=== PATIENT | male | born 1985 | race Caucasian/White ===

== ENCOUNTER → 2023-04-12 | Outpatient (CLI) | payer MEDICAID, SELFPAY ==
[2023-04-12 17:33] LABS: Absolute Lymphocyte Count 2.14 X10^3/uL (0.83-4.51); Absolute Neutrophil Count 7.1 X10^3/uL (2.0-7.7); Basophil# 0.06 X10^3/uL; Basophil% 0.6 % (0-1); Eosinophil# 0.16 X10^3/uL; Eosinophils% 1.5 % (0-5); Hematocrit 45.3 % (40-54); Hemoglobin 15.2 g/dL (13.0-16.5); Lymphocyte # 2.14 X10^3/ul (0.83-4.51); Lymphocyte % 20.4 % (19-41); Mean Corp Hgb Conc 33.6 g/dL (32-36); Mean Corpuscular Hgb 30.1 pg (27.0-32.0); Mean Corpuscular Volume 89.7 fL (80-94); Mean Platelet Vol. 10.4 fl (6.2-12.0); Monocyte# 0.97 X10^3/uL; Monocyte% 9.3 % (0-10); NRBC Flagged by Analyzer 0 % (0-5); Neutrophil # 7.06 X10^3/uL (2.7-7.7); Neutrophil % 67.3 % (47-70); Platelet Count 356 K/mm3 (150-450); RBC Distribution Width CV 12.2 % (11.6-14.6); RBC Distribution Width SD 39.2 fl (35.1-43.9); Red Blood Count 5.05 M/mm3 (4.6-6.2); White Blood Count 10.5 K/mm3 (4.4-11.0)
[2023-04-12 17:51] LABS: Vitamin D,25 Hydroxy 38.2 ng/mL
[2023-04-12 18:10] LABS: AST(SGOT) 15 U/L (15-37); Alanine Aminotransfer ALT/SGPT 30 U/L (16-61); Albumin, Serum 4.1 g/dL (3.2-5.0); Alkaline Phosphatase 76 U/L (45-117); Anion Gap 6 (5-15); BUN 20 mg/dL (7-18); BUN/Creat Ratio 17.9 RATIO (10-20); Calcium,Total 9.6 mg/dL (8.5-10.1); Chloride 105 mmol/L (98-107); Cholesterol 183 mg/dL (200); Creatinine, Serum 1.12 mg/dL (0.70-1.30); EST Glomerular Filtration Rate 79 mL/min (>60); Est Glom Filt Rate - Afr Amer 96 mL/min (>60); Globulin 4.2 g/dL (2.2-4.2); Glucose 91 mg/dL (74-106); High Density Lipoprotein 38 mg/dL; Potassium 3.9 mmol/L (3.5-5.1); Protein, Total 8.3 g/dL (6.4-8.2); Sodium Level 138 mmol/L (136-145); T4 Free Direct 0.93 ng/dL (0.76-1.46); Thyroid Stim Hormone (TSH) 2.11 uIU/mL (0.358-3.74); Triglycerides 411 mg/dL
== END | disposition home or self-care (01) ==
LOC: MFPLAB 14:53
PROVIDERS: PCP Family Medicine; Visit Provider Family Medicine
DX: Z13.21 Encounter for screening for nutritional disorder (principal); Z13.1 Encounter for screening for diabetes mellitus; E66.9 Obesity, unspecified; L73.2 Hidradenitis suppurativa; F90.9 Attention-deficit hyperactivity disorder, unspecified type
CPT/HCPCS: 36415; 80053; 80061; 82306; 84439; 84443; 85025

== ENCOUNTER → 2023-06-08 | Outpatient (CLI) | payer MEDICAID, SELFPAY ==
--- NOTE | 2023-06-08 14:28 | RAD_ITS ---
HISTORY: BACK PAIN. TECHNIQUE: XR Spine Lumbar Min 4 Views. COMPARISON: None. FINDINGS: VERTEBRAE: Vertebral body heights preserved. Posterior elements appear intact. ALIGNMENT: No significant anterior or posterior subluxation. INTERVERTEBRAL DISCS: Disc spaces maintained. SOFT TISSUES: Moderate stool in the colon. RAD/L/S Spine Min 4 Views IMPRESSION: No acute fracture or dislocation identified in the lumbar spine. Electronically Signed: Daija Salter MD at 15:01 EST ,
--- OUTSIDE RECORDS SUMMARY | 2023-06-08 14:38 | XMS RPT_ITS | CCD ---
Author Name Unknown Address [id number] [place] [address] Organization [facility] Care Team Providers Care Process Trainer Name Role Phone DUKE REYES Primary Care Unavailable MARIE BEST Attending Unavailable MARIE BEST P Referring Unavailable REFERRED, SELF Referring Unavailable RENA, DUKE Primary Care Unavailable NASIR, MARIE P Attending Unavailable RENA, DUKE Primary Care Unavailable MARIE BEST P Attending Unavailable REFERRED, SELF Referring Unavailable DUKE REYES Primary Care Unavailable NASIR, MARIE P Attending Unavailable REFERRED, SELF Referring Unavailable DUKE REYES Primary Care Unavailable DUKE REYES Referring Unavailable NASIR, MARIE P Attending Unavailable RENA, DUKE Primary Care Unavailable NASIR, MARIE P Attending Unavailable REFERRED, SELF Referring Unavailable Duke Reyes MD Primary Care Provider WILBERT ESCOBAR MD Primary Care Physician KAROL FERGUSON Attending DUKE Quintero MD Primary Care Unavaila ble KAROL FERGUSON Attending WILBERT Smallwood MD Primary Care Unavailable KAROL FERGUSON Attending WILBERT Smallwood MD Primary Care Unavailable Allergies Allergy Classification Reported Allergen(s) Allergy Type Date of Onset Reaction(s) Facility (3 sources) Codeine; Translations: [CODEINE] Drug Allergy 1 Nausea (finding) [facility] Medications Current Medications Medication Drug Class(es) Dates Sig (Normalized) Sig (Original) clindamycin 0.01 mg/mg topical gel (1 source) Lincosamide Antibacterial Start: 09-21-2022 clindamycin (Clindagel) 1 % gel APPLY TOPICALLY TO AREAS OF INFLAMMATION ONCE DAILY 60 g 5 09/21/2022 Active Completed/Discontinued Medications Medication Drug Class(es) Dates Sig (Normalized) Sig (Original) 24 hr venlafaxine 150 mg extended release oral capsule (2 sources) Serotonin and Norepinephrine Reuptake Inhibitor Start: 12-13-2018 End: 03-13-2019 venlafaxine 150 mg oral capsule, extended release Dose : 150 mg = 1 cap(s), Oral, qDay, TAKE 1 CAPSULE BY MOUTH ONCE DAILY, # 30 cap(s), 2 Refill(s) Start Date: 12/13/18 Stop Date: 03/13/19 Status: Ordered Problems Active Problems Problem Classification Problem Date Documented Date Episodic/Chronic Anxiety disorders (2 sources) Panic disorder 12-13-2018 Chronic Mood disorders (3 sources) Mood disorder; Translations: [Unspecified mood [affective] disorder] Onset: 07-21-2020 03-19-2022 Chronic Other nervous system disorders (1 source) Disturbance of attention; Translations: [Attention and concentration deficit] Onset: 07-21-2020 03-19-2022 Chronic Residual codes; unclassified (2 sources) Insomnia 12-13-2018 Episodic Substance-related disorders (1 source) Psychoactive substance abuse; Translations: [Other psychoactive substance abuse, uncomplicated] Chronic Thyroid disorders (1 source) Non-toxic multinodular goiter; Translations: [Nontoxic multinodular goiter] Onset: 07-21-2020 03-19-2022 Chronic Past or Other Problems Problem Classification Problem Date Documented Da te Episodic/Chronic Blindness and vision defects (1 source) Blurring of visual image; Translations: [Other visual disturbances] Onset: 07-21-2020 03-19-2022 Episodic Other circulatory disease (1 source) Elevated blood-pressure reading without diagnosis of hypertension; Translations: [Elevated blood-pressure reading, without diagnosis of hypertension] Onset: 07-21-2020 03-19-2022 Episodic Other skin disorders (1 source) Hidradenitis suppurativa; Translations: [Hidradenitis suppurativa] Onset: 07-21-2020 03-19-2022 Episodic Viral infection (1 source) Genital warts; Translations: [Anogenital (venereal) warts] Onset: 03-15-2021 03-19-2022 Episodic Results Test Name Value Interpretation Reference Range Facil ity Encounters Encounter Date Encounter Type Care Provider Facility Start: 11-24-2022 End: 11-25-2022 ambulatory KAROL PETERSON PMHNP-BC Facility:B Start: 11-24-2022 End: 11-24-2022 Patient encounter procedure KAROL PETERSON PMHNP- [facility] Start: 11-21-2022 End: 11-22-2022 ambulatory KAROL PETERSON PMHNP-BC Facility:B Start: 11-21-2022 End: 11-21-2022 Patient encounter procedure KAROL PETERSON HN- [facility] Start: 09-21-2022 Refill Duke mary MD Work Phone: [facility] Start: 07-18-2022 End: 07-18-2022 ambulatory [facility] Start: 04-12-2022 End: 04-12-2022 ambulatory [facility] Start: 04-07-2022 End: 04-07-2022 ambulatory [facility] Start: 04-04-2022 End: 04-05-2022 ambulatory [facility] Start: 03-24-2022 End: 03-24-2022 ambulatory SELF REFERRED [facility] Start: 10-18-2021 End: 10-18-2021 ambulatory [facility] Plan of Treatment Date Care Activity Detail Author Start: 09-03-2037 Zoster Vaccines (1 of 2) Zoster Vacc hannah (1 of 2) [facility] Start: 02-02-2023 Influenza vaccination Influenz a Vaccine (Season Ended) [facility] Start: 08-23-2022 DTaP/Tdap/Td Vaccine s (2 - Tdap) DTaP/Tdap/Td Vaccines (2 - Tdap) [facility] Start: 09-03-2005 Hepatitis C screening Hepatitis C Sc reening [facility] Start: 09-03-1988 MMR Vaccines (1 of 1 - Standard series) MMR Vaccines (1 of 1 - Standard series) [facility] Start: 09-03-1988 Varicella vaccination Varicell a Vaccines (1 of 2 - 2-dose childhood series) [facility] Start: 03-05-1988 COVID-19 Vaccine (#1) COVID-19 Vacci ne (#1) [facility] Start: 1987 Hepatitis B Vaccines (1 of 3 - 3-dose series) Hepatitis B Vaccines (1 of 3 - 3-dose series) [facility] Start: 1987 HIV screening HIV Screening [facility] Start: 1987 Lipid panel Lipid Panel [facility] Start: 1987 Thyroid Nodule Ultrasound Thyroid No dule Ultrasound [facility] Immunizations Immunization Date Immunization Notes Care Provider Sariah cruz 08-23-2012 tetanus and diphther ia toxoids, adsorbed, preservative free, for adult use (5 Lf of tetanus toxoid and 2 Lf of diphtheria toxoid) KAROL PETERSON [facility] [place] Payers Date Payer Category Payer Unknown [id number] 1987 Unknown [id number] 2. [id number] 1987 Unknown [id number] 2. [id number] 1987 Unknown [id number] 2. [id number] 1987 Unknown [id number] 2.16 [id number] 1987 Unknown [id number] 2.16. [id number] 1987 Unknown [id number] 2.16. [id number] 1987 Unknown [id number] 2.16.8 [id number] 1987 Unknown [id number] 2.16.8 [id number] 1987 Unknown [id number] [id number] Unknown [id number] Social History Date Type Detail Facility Tobacco smoking stat [facility] Ex-smoker [facility] History of tobacco use Current smoker [facility] Start: 05-23-2022 Alcohol intake Lifetime non-d ankush (finding) [facility] Start: 1987 Sex Assigned At Not on file [facility] Unique Tobacco Nicotine Use: Va ping Product in Last 90 Days. Type: Electronic Cigarettes (Vaping). Number of years: 6. [facility] Tobacco smoking status No Smokin g Status Entered [facility] Sex Assigned At Male [facility] Evaluation + Plan note 11-24-2022 Note Date & Type Note Facility 11-24-2022 Evaluation + Plan note Diagnostic Tests [facility] Send out (Blood Specimens) 11/[facility] Send out (Blood Specimens) 11/24/22 [facility] Clinical Note 08-02-2022 Note Date & Type Note Facility 08-02-2022 Note Patient states that he has seen plastics and also Dr. Vital. Patient states Dr. Vital agreed to do procedure. Please advise. Thank you [facility] Evaluation + Plan note Note Date & Type Note Facility Evaluation + Plan note No data available for this section [facility] Hospital Discharge instructions Note Date & Type Note Facility Hospital Discharge instructions No data available for this section [facility] Progress note Note Date & Type Note Facility Progress note No data available for this section [facility] Summary Purpose Family History No Family History Records FoundNo Family History Records FoundNo Family History Records Found Advance Directives No Advanced Directives Records FoundNo Advanced Directives Records FoundNo Advanced Directives Records Found Additional Source Comments (unrecognized sect ion and content) No Status Records FoundNo Status Records FoundNo Status Records Found INFORMATION SOURCE (unrecogn ized section and content) DATE CREATED AUTHOR AUTHOR'S ORGANIZ ATION 12/09/[address] [facility] ([place]) DATE CREATED AUTHOR AUTHOR'S ORGANIZ ATION 01/16/2023 [facility] Reason for Visit (unrecogniz ed section and content) Care Teams (unrecognized sec tion and content) FOR RECORDS PERTAINING TO PATIENTS WHO ARE OR HAVE BEEN ENROLLED IN A CHEMICAL DEPENDENCY/SUBSTANCEABUSE PROGRAM, SOME INFORMATION MAY BE OMITTED. This clinical summary was aggregated from multiple sources. Caution should be exercised in using it in the provision of clinical care. This summary normalizes information from multiple sources, and as a consequence, information in this document may materially change the coding, format and clinical context of patient data. In addition, data may be omitted in some cases. CLINICAL DECISIONS SHOULD BE BASED ON THE PRIMARY CLINICAL RECORDS. [facility]. provides no warranty or guarantee of the accuracy or completeness of information in this document.
== END | disposition home or self-care (01) ==
LOC: MTRAD 14:27
PROVIDERS: PCP Family Medicine; Referring Provider Family Medicine; Visit Provider Family Medicine
DX: M54.50 Low back pain, unspecified (principal)
CPT/HCPCS: 72110

== ENCOUNTER 2024-05-02 07:30 | Outpatient (RCR) | payer MEDICAID, SELFPAY ==
--- NOTE | 2024-02-22 16:00 | HP.PTEVAL ---
Patient's Visit Information Visit Information Visit Information: ORESTES OLIVEROS is a 38 year old M referred to Physical Therapy by Dr. Rd Hart MD with a diagnosis of Lumbar degenerative disc disease. Date of Evaluation: 02/22/24 Physical Therapist: Darrell Tello DPT Visit Plan Frequency: 2x /Week Duration: 4 Weeks Plan: Start with lumbar extension progression. IASTIM to L lumbar erector spinae, HS stretching. Progress core stability in neutral spine. Subjective Subjective: Pt. is here today for his initial evaluation with diagnosis of lumbar disc degeneration. Pt. reports injury his back in his teens playing backyard football. Back pain has been progressive getting worse, but tweaked it a few weeks ago. Pt. was on Prednisone which helped. He had to stop taking during not feeling well. Back pain wakes him up at night. He does report pain down his R leg at times just proximal to the knee on outside. Pt. reports nothing seems to help. Pt. reports no issues with sitting, standing does seem to worsen. He reports washing his hands frequently due to being OCD (~30 times per day) and this really makes his back pain worse. pt. reports mornings are about the same as the rest of the day. Pt. is does not work currently. He reports staying around the house due to some of his mental. Pt. is hopeful to reduce his back pain to complete all of his ADLs and IADLs without issues. Pain Lumbar spine: Pain Intensity (Out of 10): 1 Pain Intensity Range: 5 Objective Objective: POSTURE: Pt. has fairly normal posture in stance. pt has equal illiac crest heights. No later shift noted. PALPATION: Pt. has tenderness at L sided lumbar erector spinae and L sided multifidus. No pain with spring testing throughout lumbar spine. no major hypomobility noted either. NEURO: Pt. has normal sensation throughout BLEs. Pt. had normal L sided patellar and achilles DTR. He did have an odd patellar reflex with increased hip flexion. ROM: Lumbar spine: flexion min loss HS tightness, ext min nil loss NE, SB nil loss NE bilat, rotation nil loss NE. Pt. has tightness in B HS. MMT: Pt. has great B LE strength. Pt. poor+ core strength. GAIT: Pt. ambulates well. He does have decreased B arm swing. NO increase in symptoms. STAIRS: Pt. is able to complete with 1 HR without issues. Special Tests L/S Slump test left side: Negative L/S Slump test right side: Negative L/S Left Straight Leg Raise: Negative L/S Right Straight Leg Raise: Negative Balance/Special Test Scores Oswestry Low Back Score: 9 Goals Goal 1:: LTG: pt. to be I with HEP. Goal Time Frame: 4-6 Weeks Goal 2:: LTG: Pt. to have full lumbar ROM without increase in symptoms. Goal Time Frame: 4-6 Weeks Goal 3:: LTG: pt. to be able to bend over and wash hand without increase in LBP. Goal Time Frame: 4-6 Weeks Goal 4:: LTG: pt. to have increased core strength to fair in order to reduce stress to lumbar spine with all daily activities. Goal Time Frame: 4-6 Weeks Rehabilitation Potential Physical Therapy Diagnosis: Pt. has signs and symptoms consistent with lumbar DDD. Pt. would benefit from PT to address his hypomobility and muscle tension/pain. Rehabilitation Potential: Excellent Anticipated Interventions Patient/Client Instruction: Educate patient on: Condition and Plan of Care For the Purpose of:: To facilitate caregiver knowledge, To improve self management, To prevent re-injury, To improve ability to perform tasks related to life management and To improve tolerance to ADL's Therapeutic Exercise to Include: Strength training, Power training, Flexibilty training, Passive ROM, Active ROM, Dynamic Lumbar Stabilization and Randy Exercises For the Purpose of:: To decrease pain, To increase ROM, To improve nutrient delivery to tissue, To increase oxygenation perfusion, To improve muscle performance and motor function, To improve ability to perform ADL's, To improve gait and locomotor functions, To improve health of tissue, To decrease soft tissue restriction, To increase flexibility/ROM and To improve balance Manual Therapy Techniques to Include: Mobilization, Passive ROM and Soft tissue mobilization For the Purpose of:: To decrease pain, To decrease swelling/inflammation, To increase ROM, To improve nutrient delivery to tissue, To increase oxygenation perfusion, To improve muscle performance and motor function, To decrease soft tissue restriction and To increase flexibility/ROM Text: Thank you for the opportunity to evaluate your patient. For Medicare and Medicare HMO plans, please review the plan of care and approve it. It will need to be FAXED BACK to us at [phone] for Medicare purposes. For Medicare only, by signing this I certify the plan of care. Please let me know if there are questions or concerns regarding this plan of care. Physician Signature: Date:
--- NOTE | 2024-05-02 07:52 | HP.PTDCSUM ---
Discharge Summary D/C summary: It has been my pleasure to treat ORESTES OLIVEROS referred by Dr. Rd Hart MD, with the diagnosis of Lumbar degenerative disc disease for a total of 8 visit(s). Discharge Date: 05/02/24 Please see the following information for a summary of their discharge status. Subjective Subjective: Pt. reports no episodes of the major pain he was dealing with, but still has a lingering constant pain. Pt. reports having 2/10 pain currently. He reports overall about a 10% improvement overall. He reports being HEP compliant without issues. Pain Lumbar spine: Pain Intensity (Out of 10): 2 RLE: Pain Intensity (Out of 10): 0 Overall Improvement % Improvement: 10 Objective Objective/Function: ROM: Lumbar spine flexion min loss HS tightness, ext min loss increase NW, SB normal without issues, rotation normal without issues. Pt. has very tight HS and hip flexor. MMT: Pt. has 5/5 strength throughout BLEs, poor core strength noted. GAIT: normal without issues, STAIRS: normal without issues. He continues to have pain with extension, but did seem to slightly improve. I recommended that he stretch his HS and hip flexors at home and cont. to work on neutral spine core strength. Pt. consents. Due to chronic nature of his pain and not much changing of symptoms patient may benefit from further testing. Goals Goal 1:: LTG: pt. to be I with HEP. Goal Progress: Goal Met Goal 2:: LTG: Pt. to have full lumbar ROM without increase in symptoms. Goal Progress: Progressing Goal 3:: LTG: pt. to be able to bend over and wash hand without increase in LBP. Goal Progress: Goal Met Goal 4:: LTG: pt. to have increased core strength to fair in order to reduce stress to lumbar spine with all daily activities. Goal Progress: Progressing Plan Plan: Pt. desires to continue with his exercises on his own and follow back up with Dr. Hart for further testing. D/C Information Discharge Comments: DC back to physician at this point in time. d/c sentence: If there are questions or concerns regarding this patient's physical therapy, please feel free to call me at [phone]. Thank you for the referral of this patient. Sincerely, Darrell Goodman Sipos, DPT Balance/Gait/Functional tests Balance/Special Test Scores Oswestry Low Back Score: 13 Improvement % Improvement: 10
== END 2024-05-02 09:14 | disposition home or self-care (01) ==
LOC: PT 07:30
PROVIDERS: PCP Family Medicine; Referring Provider Orthopaedic Surgery Orthopaedic Surgery of the Spine; Visit Provider Orthopaedic Surgery Orthopaedic Surgery of the Spine
DX: M51.362 Other intervertebral disc degeneration, lumbar region with discogenic back pain and lower extremity pain (principal)
CPT/HCPCS: 97110; 97140; 97161; 97530

== ENCOUNTER → 2024-09-22 | Outpatient (CLI) | payer MEDICAID, SELFPAY ==
[2024-09-22 21:25] LABS: Amphetamine Urine PRESUMPTIVE POSITIVE (<1000 ng/mL); Barbiturate Urine NEGATIVE (< 200 ng/mL); Benzodiazepine Urine NEGATIVE (< 200 ng/mL); Buprenorphine Urine NEGATIVE (< 200 ng/mL); Cocaine Urine NEGATIVE (< 300 ng/mL); Fentanyl, Urine NEGATIVE; Methadone Urine NEGATIVE (< 300 ng/mL); Opiates Urine NEGATIVE (< 300 ng/mL); Oxycodone, Urine NEGATIVE (< 100 ng/mL); PCP Urine NEGATIVE (< 25 ng/mL); THC Urine NEGATIVE (< 50 ng/mL)
== END | disposition home or self-care (01) ==
LOC: MTLAB 13:24
PROVIDERS: PCP Family Medicine; Referring Provider Family Medicine; Visit Provider Family Medicine
DX: F90.9 Attention-deficit hyperactivity disorder, unspecified type (principal)
CPT/HCPCS: 80307